=== PATIENT | male | born 1990 | race Native Hawaiian/Other Pacific Islander ===

== ENCOUNTER 2017-07-05 21:12 | Emergency (ER) | payer OTHER ==
[~2017-07-05] VITALS: Ht 172.7 cm; Wt 63.5 kg
[2017-07-05] MEDS ORDERED: OXYC20TA3 PO (21:33)
[2017-07-05] MEDS ORDERED: CLON1TAB18 PO (21:33)
[2017-07-05] MEDS ORDERED: TIZA4TAB5 PO (21:33)
[2017-07-05] MEDS ORDERED: AMBIEN5 MG PO (21:34)
[2017-07-05] MEDS ORDERED: WELLBUTRIN100 M1 PO (21:34)
[2017-07-05 22:14] LABS: PLATELET COUNT 228 K/uL (142-355)
[2017-07-05 22:34] LABS: POTASSIUM 4.4 mmol/L (3.6-5.2)
== END 2017-07-05 23:05 | disposition home or self-care (01) ==
LOC: ED 21:12
DX: R30.0 Dysuria (principal)
CPT/HCPCS: 80053; 81000; 85027; 87590; 99284

== ENCOUNTER 2022-05-29 20:58 | Emergency (ER) | payer OTHER ==
[~2022-05-29] VITALS: Ht 175.3 cm; Wt 77.1 kg
[~2022-05-29 20:58] MED LIST: AMBIEN5 MG PO; CLON1TAB18 PO; OXYC20TA3 PO; TIZA4TAB5 PO; WELLBUTRIN100 M1 PO
[2022-05-29 21:05] VITALS: TEMP 98
[2022-05-29 21:30] VITALS: BP 140/86
== END 2022-05-29 21:30 | disposition home or self-care (01) ==
LOC: ED 20:58
DX: Z48.02 Encounter for removal of sutures (principal)
CPT/HCPCS: 99281